=== PATIENT | male | born 1960 | race African-American/Black ===

== ENCOUNTER 2022-12-07 13:48 | Emergency (ER) | payer SELFPAY ==
[2022-12-07 14:02] VITALS: BMI 29.5
[2022-12-07 15:33] LABS: BASO % 0.8 % (0-2.0); EOS % 2.3 % (0-4.5); HEMATOCRIT 44.5 % (35.4-49); HEMOGLOBIN 14.6 GM/dL (11.7-16.9); LYMPH % 28.4 % (8-40); MCH 26.9 pg (25.7-33.7); MCHC 32.8 g/dl (32.0-35.9); MEAN CELL VOLUME 82.1 fl (80-96); MEAN PLT VOLUME 10.3 fl (7.5-11.1); MONO % 9.9 % (3.8-10.2); NEUT % 58.6 % (42.8-82.8); PLATELET COUNT 192 10^3/uL (134-434); RBC 5.41 M/mm3 (4.00-5.60); RDW 16.5 % (11.9-15.9); WHITE BLOOD COUNT 6.9 K/mm3 (4.0-10.0)
[2022-12-07 15:41] LABS: INR 1.12 (0.83-1.09)
[2022-12-07 15:44] LABS: ACTIVATED PTT 33.3 SECONDS (25.2-36.5)
[2022-12-07 16:04] VITALS: RESP 18
[2022-12-07 16:09] LABS: POTASSIUM 3.5 mmol/L (3.5-5.1)
[2022-12-07 16:11] LABS: ALBUMIN 3.3 g/dl (3.4-5.0); BLOOD UREA NITROGEN 20.3 mg/dL (7-18); CALCIUM 8.5 mg/dL (8.5-10.1); MAGNESIUM 2.3 mg/dL (1.8-2.4)
[2022-12-07 16:16] LABS: BILIRUBIN,TOTAL 1.5 mg/dL (0.2-1); TOT PROT 7.4 g/dl (6.4-8.2)
[2022-12-07 16:19] LABS: N-TERMINAL BNP 6920.6 pg/ml (5-125)
[2022-12-07 16:45] LABS: EPI CELLS 8 /uL (0-25.1); HYALINE CASTS 4 /uL (0-3.1); PH,URINE 5.5 (5.0-8.0); URINE APPEARANCE CLEAR; URINE BACTERIA 3 /uL (0-1359); URINE BILIRUBIN 1+ (NEGATIVE); URINE COLOR DK YELLOW; URINE GLUCOSE (UA) NEGATIVE (NEGATIVE); URINE KETONE TRACE (NEGATIVE); URINE LEUK ESTERASE NEGATIVE (NEGATIVE); URINE NITRITE NEGATIVE (NEGATIVE); URINE PROTEIN 2+ (NEGATIVE); URINE RBC 23 /uL (0-23.9); URINE WBC 13 /uL (0-25.8)
[2022-12-07] MEDS ORDERED: ASPIRIN 81 MG CHEWABLE TABLETS PO ONE (16:56)
[2022-12-07] MEDS ORDERED: ASPIRIN 325 MG TABLET ONE (17:04)
[2022-12-07] MEDS ORDERED: NITROGLYCERIN SUBLINGUAL 1/150 0.4 MG TAB ONE ×3 (18:39→19:18)
[2022-12-07] MEDS ORDERED: NITROGLYCERIN SUBLINGUAL 1/150 0.4 MG TAB SL ONE (18:40)
[2022-12-07 19:59] VITALS: BP 145/103; PULSE 85; TEMP 98
== END 2022-12-07 20:29 | disposition short-term general hospital (02) ==
LOC: JER 13:48
DX: R42 Dizziness and giddiness (principal); R06.02 Shortness of breath; R05.9 Cough, unspecified; R60.9 Edema, unspecified; I21.4 Non-ST elevation (NSTEMI) myocardial infarction; Z20.822 Contact with and (suspected) exposure to COVID-19
CPT/HCPCS: 0241U-QW; 36415; 71045-TC-FY; 80053; 81003; 83735; 83880; 84484; 85025; 85610; 85730; 87086; 93005; 93010; 99285-25